=== PATIENT | female | born 1950 | race Caucasian/White ===

== ENCOUNTER 2022-09-11 08:14 | Emergency (ER) | payer MEDICARE ==
[2022-09-11] MEDS ORDERED: Clindamycin in 0.9 % Sod Chlor 600 MG in Premix Bag 1 BAG IV ONE ×2 (09:00)
[2022-09-11] MEDS ORDERED: Ketorolac 30 MG/ML SDV IVPUSH ONE (09:08)
== END 2022-09-11 10:28 | disposition home or self-care (01) ==
LOC: JP.ED 08:14
DX: L03.012 Cellulitis of left finger (principal); I10 Essential (primary) hypertension; Z88.0 Allergy status to penicillin; Z79.899 Other long term (current) drug therapy; Z90.710 Acquired absence of both cervix and uterus
CPT/HCPCS: 96365; 96375; 99283; J1885; J3490

== ENCOUNTER 2022-09-23 10:41 | Emergency (ER) | payer MEDICARE ==
[2022-09-23] MEDS ORDERED: Bacitracin Oint 1 GM U/D Packet TOP ONE (11:12)
[2022-09-23] MEDS ORDERED: Lidocaine 1% 5 ML VIAL INJECT ONE (11:12)
== END 2022-09-23 12:40 | disposition home or self-care (01) ==
LOC: JP.ED 10:41
DX: L03.012 Cellulitis of left finger (principal); L02.512 Cutaneous abscess of left hand; I10 Essential (primary) hypertension; Z88.0 Allergy status to penicillin; Z87.891 Personal history of nicotine dependence
CPT/HCPCS: 10060; 99283-25

== ENCOUNTER 2023-03-26 07:30 | Emergency (ER) | payer MEDICARE ==
[2023-03-26] MEDS ORDERED: Cyclobenzaprine 10 MG Tab PO ONE (08:28)
[2023-03-26] MEDS ORDERED: HYDROmorphone 1 MG/ML Syringe IM ONE ×2 (08:28→10:16)
== END 2023-03-26 14:10 | disposition home or self-care (01) ==
LOC: JP.ED 07:30
DX: M48.02 Spinal stenosis, cervical region (principal); R20.2 Paresthesia of skin; I10 Essential (primary) hypertension; K21.9 Gastro-esophageal reflux disease without esophagitis; Z88.0 Allergy status to penicillin; Z87.891 Personal history of nicotine dependence
CPT/HCPCS: 72141; 96372; 99283; A9270; J1170